=== PATIENT | female | born 1945 | race American Indian/Alaskan Native ===

== ENCOUNTER 2021-11-24 10:38 | Day surgery (SDC) | payer MEDICARE, OTHER ==
[~2021-11-24 10:38] MED LIST: Albuterol 0.083% 2.5 MG/3 ML Neb Soln NEB PRN; HYDROmorphone 1 MG/ML Syringe IVPUSH PRN; Metoclopramide 10 MG/2 ML SDV IVPUSH PRN; Morphine 2 MG/ML SYRINGE IVPUSH PRN; Naloxone 0.4 MG/ML SDV IVPUSH PRN; Ondansetron 4 MG/2 ML SDV IVPUSH PRN; fentaNYL 50 MCG/ML SDV IVPUSH PRN
[2021-11-24] MEDS ORDERED: Lactated Ringers 1,000 ML IV SCH (11:15)
[2021-11-24] MEDS ORDERED: Propofol 200 MG/20 ML SDV ONE ×2 (11:38→12:16)
[2021-11-24] MEDS ORDERED: fentaNYL 250 MCG/5 ML SDV ONE (11:38)
[2021-11-24] MEDS ORDERED: Bupivacaine 0.5% 30 ML SDV ONE (12:22)
[2021-11-24] MEDS ORDERED: Phenylephrine HCl In 0.9% NaCl 1 MG/10 ML Vial ONE (12:27)
[2021-11-24 13:28] VITALS: BP 121/57; PULSE 74
== END 2021-11-24 13:15 | disposition home or self-care (01) ==
LOC: MW.SDS 10:38
PROVIDERS: ATTEND Surgery
DX: Z45.2 Encounter for adjustment and management of vascular access device (principal); E11.9 Type 2 diabetes mellitus without complications; I10 Essential (primary) hypertension; E78.00 Pure hypercholesterolemia, unspecified; E05.90 Thyrotoxicosis, unspecified without thyrotoxic crisis or storm; E66.9 Obesity, unspecified; Z91.09 Other allergy status, other than to drugs and biological substances; Z79.82 Long term (current) use of aspirin; Z79.899 Other long term (current) drug therapy; Z79.890 Hormone replacement therapy; Z90.49 Acquired absence of other specified parts of digestive tract; Z98.890 Other specified postprocedural states
CPT/HCPCS: 00400; 99100; J2704; J3010; J3490; J7120